=== PATIENT | male | born 1980 | race Caucasian/White ===

== ENCOUNTER 2019-01-23 20:53 | Emergency (ER) | payer BC ==
[2019-01-23] MEDS ORDERED: LIDOCAINE 1% INJ 10MG/ML (20 ML MDV) SQ ONE (21:39)
--- NOTE | 2019-01-23 21:57 | XR ---
EXAMINATION TYPE: XR hand limited LT DATE OF EXAM: 01/23/2019 COMPARISON: NONE HISTORY: Pain TECHNIQUE: 2 views FINDINGS: There is nondisplaced fracture of the tuft of the distal phalanx of the ring finger left shaikh nd. There is no dislocation. Joint spaces are normal. IMPRESSION: Fracture of the left ring finger.
[2019-01-23] MEDS ORDERED: ceFAZolin 1,000 MG VIAL (IM USE) IM STA (22:23)
[2019-01-23] MEDS ORDERED: KETOROLAC 60 MG/2 ML VIAL IM STA (23:28)
[2019-01-23] MEDS ORDERED: ACET/COD 300 MG/30 MG STARTER PACK 6 TAB BTL PO STA (23:28)
--- NOTE | 2019-01-23 23:28 | ED ---
Wound/Laceration HPI - General Chief Complaint: Wound/Laceration Stated Complaint: finger injury Time Seen by Provider: 01/23/19 21:06 Source: patient Mode of arrival: ambulatory Limitations: no limitations - History of Present Illness Initial Comments: Patient is a 38-year-old male presenting to the emergency Department with complaints of a laceration to his left fourth digit that happened prior to arrival. Patient states he was laying some nina and he was using a mallet to hit the edge of the nina when he missed hitting his left fourth digit. Patient states he had instant pain and bleeding. Bleeding is minimal at this time. Patient states his last tetanus vaccine was approximately one year ago. Patient denies any previous injuries to his left hand. Patient has no other complaints right now. Patient denies being on blood thinner. Patient denies fever, chills. Upon arrival to ER, vital signs are stable. - Related Data Previous Rx's Medication Instructions Recorded Cephalexin [Keflex] 500 mg PO Q6HR 5 Days #20 cap 01/23/19 Allergies Allergy/AdvReac Type Severity Reaction Status Date / Time amoxicillin [From Augmentin] Allergy fever Verified 01/23/19 20:58 clavulanic acid Allergy fever Verified 01/23/19 20:58 [From Augmentin] Review of Systems ROS Statement: Those systems with pertinent positive or pertinent negative responses have been documented in the HPI. ROS Other: All systems not noted in ROS Statement are negative. Past Medical History Additional Past Medical History / Comment(s): crohns History of Any Multi-Drug Resistant Organisms: None Reported Past Surgical History: Appendectomy Past Psychological History: No Psychological Hx Reported Smoking Status: Never smoker Past Alcohol Use History: Occasional Past Drug Use History: None Reported General Exam - General Exam Comments Initial Comments: GENERAL: Well-appearing, well-nourished and in no acute distress. HEAD: Atraumatic, normocephalic. EYES: Pupils equal round and reactive to light, extraocular movements intact, sclera anicteric, conjunctiva are normal. ENT: TMs normal, nares patent, oropharynx clear without exudates. Moist mucous membranes. NECK: Normal range of motion, supple without lymphadenopathy or JVD. LUNGS: Breath sounds clear to auscultation bilaterally and equal. No wheezes rales or rhonchi. HEART: Regular rate and rhythm without murmurs, rubs or gallops. ABDOMEN: Soft, nontender, normoactive bowel sounds. No guarding, no rebound. No masses appreciated. : Deferred EXTREMITIES: Patient has full range of motion of his left fingers. Pain with extension of left fourth digit. No clubbing or cyanosis. NEUROLOGICAL: Cranial nerves II through XII grossly intact. Normal speech, normal gait. PSYCH: Normal mood, normal affect. SKIN: Warm, Dry, normal turgor, no rashes. Patient has a 1 cm laceration on his left fourth digit, distal phalanx, palmar aspect that wraps around to the lateral aspect, involving the nail. Bleeding is minimal at this time. There is no obvious deformity. Her vascular intact. Limitations: no limitations Course Vital Signs 01/23/19 01/23/19 20:55 23:40 Temperature 98.0 F 98.3 F Pulse Rate 84 88 Respiratory 20 16 Rate Blood Pressure 161/86 136/74 O2 Sat by Pulse 99 100 Oximetry Procedures - Laceration Laceration #1 Consent Obtained: verbal consent Indication: laceration Site: hand (Left fourth digit, palmar aspect, distal phalanx, involving nail) Size (cm): 1 Description: linear Depth: simple, single layer Anesthetic Used: lidocaine 1% Anesthesia Technique: local infiltration Amount (mls): 2 Pre-repair: irrigated extensively Type of Sutures: nylon, vicryl Size of Sutures: 4-0, 5-0 Number of Sutures: 6 (5 nylon 4-0. 1 Vicryl 5-0, for a total of 6 sutures.) Technique: simple, interrupted Patient Tolerated Procedure: well Medical Decision Making - Medical Decision Making Patient is a 38-year-old male presenting with a laceration to his left fourth digit, palmar aspect, distal phalanx. Patient accidentally smashed his finger with a mallet he was using to install nina. On exam, patient has a 1 cm laceration to the left distal phalanx palmar aspect at wraps to the lateral aspect adjacent to his nail. There is nail involvement. X-ray of the left hand reveals a nondisplaced fracture of the tuft of the distal phalanx of the ring finger. There is no dislocations. Given the nature of the laceration and fracture, will be treated as an open fracture. Patient was given Ancef 1g, IM. Wound was cleaned with Betadine water solution, and also irrigated with 1 L of sterile water. Wound was closed with 5 nylon 4-0 sutures as well as 1 Vicryl 5- 0 suture. Patient tolerated procedure well. Patient will continue with Keflex for infection prophylactic. Patient was also placed in a finger splint. Patient will have sutures removed in 10-12 days. Case is discussed with Dr. Harper. Return parameters were discussed with the patient he verbalizes understanding. Patient is stable for discharge at this time. Disposition Clinical Impression: Open fracture of tuft of distal phalanx of finger, Laceration of left ring finger with damage to nail Disposition: HOME SELF-CARE Condition: Stable Instructions (If sedation given, give patient instructions): Care For Your Stitches (ED), Finger Fracture (ED), Finger Laceration (ED) Additional Instructions: Please return to the Emergency Department if symptoms worsen or any other concerns. Sutures need to be removed in 10-12 days as discussed. Take antibiotics as prescribed. Prescriptions: Cephalexin [Keflex] 500 mg PO Q6HR 5 Days #20 cap Is patient prescribed a controlled substance at d/c from ED?: No Referrals: None,Stated [Primary Care Provider] - 1-2 days
[2019-01-23 23:46] VITALS: BP 136/74; PULSE 88; RESP 16; TEMP 98.3
== END 2019-01-23 23:40 | disposition home or self-care (01) ==
LOC: EC 20:53
DX: S62.635B Displaced fracture of distal phalanx of left ring finger, initial encounter for open fracture (principal); Z88.0 Allergy status to penicillin; W22.8XXA Striking against or struck by other objects, initial encounter; Y93.89 Activity, other specified; Y92.89 Other specified places as the place of occurrence of the external cause
CPT/HCPCS: 73120; 99283; 12001; 96372 ×2; J0690; J2001; J1885